=== PATIENT | male | born 1995 | race Caucasian/White ===

== ENCOUNTER 2020-06-13 13:47 | Emergency (ER) | payer SELFPAY ==
[2020-06-13] MEDS ORDERED: Ketorolac Tromethamine 30 MG/ML VIAL ONE (14:10)
[2020-06-13] MEDS ORDERED: HYDROcodone/Acetaminophen 5/325 mg Tablet ONE (14:10)
--- NOTE | 2020-06-13 14:43 | RAD ---
LEFT ANKLE THREE VIEWS: 06/13/20 INDICATION: History of fall with left ankle pain. COMPARISON: None. FINDINGS: There is a 1.1 cm ossific fragment seen along the posterior aspect of the posterolateral talar dome s uspicious for small fracture in this location. Dedicated CT may be helpful for improved characterizat ion. The visualized hindfoot appears intact. IMPRESSION: Findings suspicious for posterolateral talar dome fracture. POS: BH
--- NOTE | 2020-06-13 14:44 | RAD ---
LEFT FOOT THREE VIEWS: 06/13/20 INDICATION: History of fall with left foot pain. FINDINGS/IMPRESSION: Lisfranc alignment is preserved. No definite acute fracture or subluxation is seen involving the left foot. Please see radiographs of the left ankle for further detail concerning the talar dome. POS: BH
--- NOTE | 2020-06-13 14:45 | RAD ---
LEFT KNEE FOUR VIEWS: 06/13/20 INDICATION: History of left knee pain after fall. COMPARISON: None. FINDINGS: No definite acute fracture or subluxation is evident. No joint capsular distention is evident. IMPRESSION: No acute abnormality. POS: BH
== END 2020-06-13 15:33 | disposition home or self-care (01) ==
LOC: ERS 13:47
DX: S92.102A Unspecified fracture of left talus, initial encounter for closed fracture (principal); W17.89XA Other fall from one level to another, initial encounter; Y99.0 Civilian activity done for income or pay
CPT/HCPCS: 96372; J1885